=== PATIENT | male | born 1990 | race Caucasian/White ===

== ENCOUNTER 2023-03-10 06:17 | Emergency (ER) | payer MEDICARE, MEDICAID ==
[2023-03-10 07:58] LABS: Acetaminophen Less than 10.0 mcg/mL (10.0-30.0); Alcohol Less than 10 mg/dL (Less than 10); Salicylate Less than 8.0 mg/dL (15.0-30.0)
[2023-03-10 07:59] LABS: ALT (SGPT) 21 U/L (8-55); AST (SGOT) 35 U/L (5-34); Albumin 4.5 g/dL (3.5-5.0); Alkaline Phosphatase 154 U/L (40-110); Anion Gap 12 mmol/L (10-20); BUN (Urea Nitrogen) 11 mg/dL (8.9-20.6); Bilirubin, Total 0.2 mg/dL (0.2-1.2); Calc. Creatinine Clearance 0 mL/min (70-130); Calcium 9.1 mg/dL (7.8-10.44); Carbon Dioxide 26 mmol/L (22-29); Chloride 102 mmol/L (98-107); Estimated GFR 119; Globulin 2.7 g/dL (2.4-3.5); Glucose 116 mg/dL (70-105); Potassium 3.7 mmol/L (3.5-5.1); Protein, Total 7.2 g/dL (6.0-8.3); Sodium 136 mmol/L (136-145)
[2023-03-10 09:06] LABS: #Lymphocytes 0.6 thou/uL (1.20-3.40); #Monocytes 0.6 thou/uL (0.11-0.59); #Neutrophils 6.5 thou/uL (1.40-6.50); %Basophils 0.1 % (0.0-1.0); %Eosinophils 0.1 % (0.0-10.0); %Lymphocytes 7.7 % (21.0-51.0); %Monocytes 7.9 % (0.0-10.0); %Neutrophils 84.1 % (42.0-75.0); Hemoglobin 11.3 g/dL (14.0-18.0); Mean Corpuscular HGB CONC 30.7 g/dL (32.0-36.0); Mean Corpuscular Volume 81.3 fl (78.0-98.0); Mean Platelet Volume 10.3 fL (7.4-10.4); Platelet Count 180 10x3/uL (130-400); RBC Distribution Width 14.9 % (11.5-14.5); Red Blood Cell (RBC) Count 4.52 mill/uL (4.70-6.10); White Blood Cell (WBC) Count 7.7 10x3/uL (4.8-10.8)
[2023-03-10] MEDS ORDERED: Boostrix 0.5 ML (Tdap) VIAL (>/=7 yrs of age) ONE (09:07)
[2023-03-10] MEDS ORDERED: Bacitracin 1 PK ONE (09:07)
[2023-03-10 09:23] LABS: Amphetamine Not Detected (NotDetected); Barbiturates Screen Not Detected (NotDetected); Benzodiazepine Screen Detected (NotDetected); Cocaine Metabolite Screen Not Detected (NotDetected); Methadone Not Detected (NotDetected); Methamphetamine Not Detected (NotDetected); Opiate Screen Not Detected (NotDetected); Oxycodone Screen Not Detected (NotDetected); Phencyclidine (PCP) Not Detected (NotDetected); THC/Cannabinoid Screen Not Detected (NotDetected); Tricyclic Screen Not Detected (NotDetected)
[2023-03-10] MEDS ORDERED: Ketorolac Tromethamine 30 MG/ML VIAL ONE (10:12)
[2023-03-10] MEDS ORDERED: Bisacodyl 5 MG TAB PO PRN (10:15)
[2023-03-10] MEDS ORDERED: Ondansetron PF 4 MG/2 ML Vial IVP PRN (10:15)
[2023-03-10] MEDS ORDERED: Acetaminophen 325 MG TAB PO PRN (10:15)
[2023-03-10] MEDS ORDERED: Bisacodyl 10 MG SUPP PR PRN (10:15)
[2023-03-10] MEDS ORDERED: Senokot S 8.6-50 MG TAB PO PRN (10:15)
[2023-03-10] MEDS ORDERED: LORazepam 2 MG/ML SYR.(CARPUJECT) ONE ×3 (10:17→11:04)
[2023-03-10] MEDS ORDERED: Sodium Chloride 0.9% 1,000 ML IV SCH (10:45)
[2023-03-10] MEDS ORDERED: levETIRAcetam 500 MG/5 ML VIAL ONE ×2 (10:46→12:24)
[2023-03-10] MEDS ORDERED: Succinylcholine 200 MG/10 ml SYRINGE FS ONE (11:06)
[2023-03-10] MEDS ORDERED: PROPOFOL 20 ML ONE (11:06)
[2023-03-10] MEDS ORDERED: Propofol 1,000 MG/100 ML VIAL IV ONE (11:14)
[2023-03-10] MEDS ORDERED: Activated Charcoal/Sorbitol 25 GM/120 ML TUBE ONE (11:17)
[2023-03-10] MEDS ORDERED: fentaNYL 50 mcg/mL 1 mL Vial ONE (11:17)
[2023-03-10] MEDS ORDERED: Midazolam HCl 5 mg/ml Vial ONE (11:22)
[2023-03-10] MEDS ORDERED: Rocuronium Bromide 10 MG/ML (10ML VIAL) ONE (11:24)
[2023-03-10 11:49] LABS: Actual Bicarbonate (HCO3a) 24.5 mEq/L (22-28); Analyzer IN Cardio ER; CO2 Tension 39.2 mmHg (35.0-45.0); Calcium, Ionized (arterial) 1.11 mmol/L (1.12-1.30); Carboxyhemoglobin (COHb) 0.4 gm% (0.0-3.0); Hemoglobin (Hb) 11.2 g/dL (14.0-18.0); O2 Tension (PaO2), arterial 176.2 mmHg (80.0-100.0); Potassium - ABG Lab 3.57 mmol/L (3.70-5.30); pH, Arterial 7.41 (7.35-7.45)
[2023-03-10 12:02] LABS: Puncture Site RBA
[2023-03-10] MEDS ORDERED: Fentanyl CADD 100 ML IV SCH (12:30)
== END 2023-03-10 12:52 | disposition short-term general hospital (02) ==
LOC: EDBD 06:17 → SUATTDRO 06:17 → ERS 06:17
PROVIDERS: ADMIT Family Medicine; ATTEND Family Medicine
DX: S01.112A Laceration without foreign body of left eyelid and periocular area, initial encounter (principal); G40 Epilepsy and recurrent seizures; R41.82 Altered mental status, unspecified; F17.210 Nicotine dependence, cigarettes, uncomplicated; W18.30XA Fall on same level, unspecified, initial encounter
CPT/HCPCS: 12011; 31500; 36415; 36600; 51702; 70450; 70486; 71045; 72125; 80053; 80306; 80307; 82805; 84146; 84443; 85025; 90471; 90715; 93005; 94002; 96365; 96372; 96374; 96375; J1885; J1953; J2060; J2250; J2704; J3010

== ENCOUNTER 2023-03-23 20:32 | Emergency (ER) | payer MEDICAID, MEDICARE ==
[2023-03-23 21:15] LABS: Bilirubin Negative (Negative); Blood, Urine Negative (Negative); Clarity Clear (Clear); Glucose, Urine (Dipstick) Normal (Negative); Ketone, Urine Negative (Negative); Leukocyte Negative Leu/uL (Negative); Nitrite Negative (Negative); Protein, Urine (Dipstick) Negative (Neg-Trace); Specific Gravity, Urine 1.003 (1.002-1.036); Urobilinogen Normal mg/dL (Less than 2)
[2023-03-23 21:22] LABS: Amphetamine Not Detected (NotDetected); Barbiturates Screen Not Detected (NotDetected); Benzodiazepine Screen Not Detected (NotDetected); Cocaine Metabolite Screen Not Detected (NotDetected); Methadone Not Detected (NotDetected); Methamphetamine Not Detected (NotDetected); Opiate Screen Not Detected (NotDetected); Oxycodone Screen Not Detected (NotDetected); Phencyclidine (PCP) Not Detected (NotDetected); THC/Cannabinoid Screen Not Detected (NotDetected); Tricyclic Screen Not Detected (NotDetected)
[2023-03-23 21:59] LABS: Hemoglobin 11.9 g/dL (14.0-18.0); Mean Corpuscular HGB CONC 31.7 g/dL (32.0-36.0); Mean Corpuscular Hemoglobin 25.6 pg (27.0-31.0); Mean Corpuscular Volume 80.8 fl (78.0-98.0); RBC Distribution Width 15.9 % (11.5-14.5); Red Blood Cell (RBC) Count 4.64 mill/uL (4.70-6.10); White Blood Cell (WBC) Count 7.8 10x3/uL (4.8-10.8)
[2023-03-23] MEDS ORDERED: carBAMazepine 200 MG TAB PO SCH (22:00)
[2023-03-23 22:18] LABS: #Basophils 0.1 thou/uL (0.0-0.2); #Lymphocytes 1.2 thou/uL (1.20-3.40); #Monocytes 0.6 thou/uL (0.11-0.59); #Neutrophils 5.9 thou/uL (1.40-6.50); %Basophils 0.7 % (0.0-1.0); %Eosinophils 0.6 % (0.0-10.0); %Lymphocytes 15.1 % (21.0-51.0); %Monocytes 8.1 % (0.0-10.0); %Neutrophils 75.5 % (42.0-75.0); Anisocytosis SLIGHT = 6-15 cells (100X) (0-5/hpf); MDiff Complete? YES; Mean Platelet Volume 9.2 fL (7.4-10.4); Platelet Count 247 10x3/uL (130-400); Platelet Morphology Comment Appears Adequate
[2023-03-23 22:35] LABS: Carbamazepine-Tegretol Less than 1.9 ug/mL (4.0-12.0)
[2023-03-23 22:37] LABS: ALT (SGPT) 12 U/L (8-55); AST (SGOT) 20 U/L (5-34); Albumin 4.7 g/dL (3.5-5.0); Alkaline Phosphatase 158 U/L (40-110); Anion Gap 17 mmol/L (10-20); BUN (Urea Nitrogen) 12 mg/dL (8.9-20.6); Bilirubin, Total 0.2 mg/dL (0.2-1.2); Calc. Creatinine Clearance 0 mL/min (70-130); Calcium 9.5 mg/dL (7.8-10.44); Carbon Dioxide 18 mmol/L (22-29); Chloride 105 mmol/L (98-107); Estimated GFR 116; Globulin 3.2 g/dL (2.4-3.5); Glucose 128 mg/dL (70-105); Potassium 4.3 mmol/L (3.5-5.1); Protein, Total 7.9 g/dL (6.0-8.3); Sodium 136 mmol/L (136-145)
== END 2023-03-24 00:59 ==
LOC: ERS 20:32
DX: R56.9 Unspecified convulsions (principal); D64.9 Anemia, unspecified; F17.290 Nicotine dependence, other tobacco product, uncomplicated; Z79.899 Other long term (current) drug therapy
CPT/HCPCS: 36416; 80053; 80156; 80306; 81003; 84146; 85025; 99284

== ENCOUNTER 2023-04-04 15:07 | Emergency (ER) | payer MEDICARE, MEDICAID ==
[2023-04-04] MEDS ORDERED: Fosphenytoin Sodium 500 mg/10 ml Vial ONE (15:37)
[2023-04-04] MEDS ORDERED: levETIRAcetam 500 MG/5 ML VIAL ONE (15:37)
[2023-04-04] MEDS ORDERED: Diazepam 10 MG/2 ML SYRINGE ONE (15:37)
[2023-04-04] MEDS ORDERED: Fosphenytoin Sodium 1,500 MG in Sodium Chloride 0.9% 50 ML IVPB SCH (15:45)
[2023-04-04] MEDS ORDERED: Rocuronium Bromide 10 MG/ML (10ML VIAL) ONE (15:50)
[2023-04-04] MEDS ORDERED: Propofol 1,000 MG/100 ML VIAL IV ONE (15:51)
[2023-04-04 15:55] LABS: #Eosinphils 0.1 thou/uL (0.0-0.7); #Lymphocytes 1.3 thou/uL (1.20-3.40); #Monocytes 0.4 thou/uL (0.11-0.59); #Neutrophils 3.9 thou/uL (1.40-6.50); %Basophils 0.2 % (0.0-1.0); %Eosinophils 0.9 % (0.0-10.0); %Lymphocytes 22.6 % (21.0-51.0); %Monocytes 6.9 % (0.0-10.0); %Neutrophils 69.4 % (42.0-75.0); Hemoglobin 10.6 g/dL (14.0-18.0); Mean Corpuscular HGB CONC 32.6 g/dL (32.0-36.0); Mean Corpuscular Hemoglobin 26.1 pg (27.0-31.0); Mean Platelet Volume 9.9 fL (7.4-10.4); Platelet Count 211 10x3/uL (130-400); RBC Distribution Width 15.7 % (11.5-14.5); Red Blood Cell (RBC) Count 4.07 mill/uL (4.70-6.10); White Blood Cell (WBC) Count 5.6 10x3/uL (4.8-10.8)
[2023-04-04 16:19] LABS: ALT (SGPT) 11 U/L (8-55); AST (SGOT) 16 U/L (5-34); Albumin 4.6 g/dL (3.5-5.0); Alkaline Phosphatase 149 U/L (40-110); Anion Gap 13 mmol/L (10-20); BUN (Urea Nitrogen) 14 mg/dL (8.9-20.6); Bilirubin, Total Less than 0.2 mg/dL (0.2-1.2); Calc. Creatinine Clearance 0 mL/min (70-130); Calcium 9.4 mg/dL (7.8-10.44); Carbon Dioxide 26 mmol/L (22-29); Chloride 107 mmol/L (98-107); Estimated GFR 121; Globulin 2.8 g/dL (2.4-3.5); Glucose 98 mg/dL (70-105); Potassium 3.9 mmol/L (3.5-5.1); Protein, Total 7.4 g/dL (6.0-8.3); Sodium 142 mmol/L (136-145)
[2023-04-04 16:29] LABS: Bilirubin Negative (Negative); Blood, Urine Negative (Negative); Clarity Clear (Clear); Glucose, Urine (Dipstick) Normal (Negative); Ketone, Urine Negative (Negative); Leukocyte Negative Leu/uL (Negative); Nitrite Negative (Negative); Protein, Urine (Dipstick) Negative (Neg-Trace); Specific Gravity, Urine 1.007 (1.002-1.036); Urobilinogen Normal mg/dL (Less than 2); pH, Urine 7.5 (5.0-9.0)
[2023-04-04 16:55] LABS: Amphetamine Not Detected (NotDetected); Barbiturates Screen Not Detected (NotDetected); Benzodiazepine Screen Not Detected (NotDetected); Cocaine Metabolite Screen Not Detected (NotDetected); Methadone Not Detected (NotDetected); Methamphetamine Not Detected (NotDetected); Opiate Screen Not Detected (NotDetected); Oxycodone Screen Not Detected (NotDetected); Phencyclidine (PCP) Not Detected (NotDetected); THC/Cannabinoid Screen Not Detected (NotDetected); Tricyclic Screen Not Detected (NotDetected)
[2023-04-04 16:58] LABS: Carbamazepine-Tegretol 4.9 ug/mL (4.0-12.0)
== END 2023-04-04 16:20 | disposition home or self-care (01) ==
LOC: ERS 15:07
DX: R56.9 Unspecified convulsions (principal); F17.290 Nicotine dependence, other tobacco product, uncomplicated
CPT/HCPCS: 80053; 80156; 80164; 80306; 81003; 84146; 85025; 94760; 96374; 96375; 99284; J1953; J2704; J3360; Q2009

== ENCOUNTER 2023-04-15 16:34 | Emergency (ER) | payer OTHER ==
[2023-04-15] MEDS ORDERED: LORazepam 2 MG/ML SYR.(CARPUJECT) ONE (17:02)
[2023-04-15 17:23] LABS: #Monocytes 0.4 thou/uL (0.11-0.59); %Basophils 0.4 % (0.0-1.0); %Eosinophils 0.4 % (0.0-10.0); %Lymphocytes 10.4 % (21.0-51.0); %Monocytes 8.4 % (0.0-10.0); %Neutrophils 80.2 % (42.0-75.0); Hemoglobin 9.5 g/dL (14.0-18.0); Mean Corpuscular Hemoglobin 24.2 pg (27.0-31.0); Mean Corpuscular Volume 80.9 fl (78.0-98.0); Mean Platelet Volume 11.1 fL (7.4-10.4); Platelet Count 321 10x3/uL (130-400); Red Blood Cell (RBC) Count 3.92 mill/uL (4.70-6.10)
[2023-04-15 18:17] LABS: ALT (SGPT) 272 U/L (8-55); AST (SGOT) 393 U/L (5-34); Albumin 4.7 g/dL (3.5-5.0); Alkaline Phosphatase 191 U/L (40-110); Anion Gap 14 mmol/L (10-20); BUN (Urea Nitrogen) 6 mg/dL (8.9-20.6); Bilirubin, Total 0.5 mg/dL (0.2-1.2); Calc. Creatinine Clearance 0 mL/min (70-130); Calcium 9.5 mg/dL (7.8-10.44); Carbon Dioxide 25 mmol/L (22-29); Chloride 108 mmol/L (98-107); Estimated GFR 123; Glucose 90 mg/dL (70-105); Potassium 4.3 mmol/L (3.5-5.1); Protein, Total 7.7 g/dL (6.0-8.3); Sodium 143 mmol/L (136-145)
== END 2023-04-15 17:22 | disposition home or self-care (01) ==
LOC: ERS 16:34
DX: R56.9 Unspecified convulsions (principal)
CPT/HCPCS: 80053; 85025; 93005; 96374; J2060

== ENCOUNTER 2023-04-22 03:16 | Inpatient (IN) | payer MEDICARE, MEDICAID ==
[2023-04-22] MEDS ORDERED: Morphine 4 MG/ML VIAL ONE (04:09)
[2023-04-22] MEDS ORDERED: Piperacillin/Tazobactam 3.375 GM VIAL ONE (04:09)
[2023-04-22 05:30] LABS: #Monocytes 0.5 thou/uL (0.11-0.59); #Neutrophils 3.2 thou/uL (1.40-6.50); %Basophils 0.6 % (0.0-1.0); %Eosinophils 0.6 % (0.0-10.0); %Lymphocytes 19.9 % (21.0-51.0); %Monocytes 9.8 % (0.0-10.0); %Neutrophils 68.9 % (42.0-75.0); Hemoglobin 9.4 g/dL (14.0-18.0); Mean Corpuscular HGB CONC 28.6 g/dL (32.0-36.0); Mean Corpuscular Hemoglobin 23.5 pg (27.0-31.0); Mean Corpuscular Volume 82.3 fl (78.0-98.0); Mean Platelet Volume 11.4 fL (7.4-10.4); Platelet Count 277 10x3/uL (130-400); RBC Distribution Width 17.7 % (11.5-14.5); White Blood Cell (WBC) Count 4.7 10x3/uL (4.8-10.8)
[2023-04-22 05:52] LABS: ALT (SGPT) 37 U/L (8-55); AST (SGOT) 16 U/L (5-34); Acetaminophen Less than 10.0 mcg/mL (10.0-30.0); Albumin 4.5 g/dL (3.5-5.0); Alcohol Less than 10 mg/dL (Less than 10); Alkaline Phosphatase 153 U/L (40-110); Anion Gap 12 mmol/L (10-20); BUN (Urea Nitrogen) 10 mg/dL (8.9-20.6); Bilirubin, Total 0.2 mg/dL (0.2-1.2); Calc. Creatinine Clearance 0 mL/min (70-130); Calcium 9.3 mg/dL (7.8-10.44); Carbon Dioxide 27 mmol/L (22-29); Chloride 107 mmol/L (98-107); Estimated GFR 126; Globulin 2.5 g/dL (2.4-3.5); Glucose 94 mg/dL (70-105); Lipase 111 U/L (8-78); Potassium 4.1 mmol/L (3.5-5.1); Salicylate Less than 8.0 mg/dL (15.0-30.0); Sodium 142 mmol/L (136-145)
[2023-04-22 06:01] LABS: CellaVision Operator ID lab.abc; Hypochromia SLIGHT = 6-15 cells HPF (0-5); Platelet Adequacy Comment Platelets Normal
[2023-04-22] MEDS ORDERED: Acetaminophen 650 MG Suppository PR PRN (06:25)
[2023-04-22] MEDS ORDERED: Ondansetron PF 4 MG/2 ML Vial IVP PRN (06:25)
[2023-04-22 07:25] LABS: Bacteria/HPF None Seen HPF (None Seen); Bilirubin Negative (Negative); Blood, Urine Negative (Negative); Clarity Clear (Clear); Glucose, Urine (Dipstick) Normal (Negative); Ketone, Urine Negative (Negative); Leukocyte Negative Leu/uL (Negative); Nitrite Negative (Negative); Protein, Urine (Dipstick) Negative (Neg-Trace); RBC/HPF 0-3 HPF (0-3); Specific Gravity, Urine 1.025 (1.002-1.036); Squamous Epithelial 0-3 HPF (0-3); Urobilinogen 3 mg/dL (Less than 2); WBC/HPF 0-3 HPF (0-3); pH, Urine 7.5 (5.0-9.0)
[2023-04-22 08:03] LABS: Amphetamine Not Detected (NotDetected); Barbiturates Screen Not Detected (NotDetected); Benzodiazepine Screen Not Detected (NotDetected); Cocaine Metabolite Screen Not Detected (NotDetected); Methadone Not Detected (NotDetected); Methamphetamine Not Detected (NotDetected); Opiate Screen Not Detected (NotDetected); Oxycodone Screen Not Detected (NotDetected); Phencyclidine (PCP) Not Detected (NotDetected); THC/Cannabinoid Screen Not Detected (NotDetected); Tricyclic Screen Not Detected (NotDetected)
[2023-04-22] MEDS: D5 1/2 NS w/20 mEq KCL 1,000 ML IV SCH ×2 (08:15→20:00)
[2023-04-22 08:30] VITALS: BMI 23.1
[2023-04-22 08:37] LABS: SARS-CoV-2 NAA Rapid Test DETECTED (NotDetected)
[2023-04-22] MEDS: Famotidine/PF 20 mg/2ml Vial SLOW IVP SCH ×2 (09:03→21:58)
[2023-04-22] MEDS ORDERED: Multivitamins CHEW w/Iron Tablet PO SCH (09:30)
[2023-04-22] MEDS ORDERED: Cyanocobalamin 1000 MCG/ML VIAL IM SCH (09:30)
[2023-04-22 10:00] LABS: Iron 19 ug/dL (65-175); Iron Binding Capacity, Total 460 mcg/dL (261-462)
[2023-04-22] MEDS ORDERED: MULTIVIT/IRON SULF/FOLIC ACID 1 EACH TAB PO SCH (10:00)
[2023-04-22 10:25] LABS: Ferritin 41.93 ng/mL (22-322)
[2023-04-22] MEDS: Acetaminophen/Codeine 30-300mg Tablet PO SCH ×3 (11:18→23:30)
[2023-04-22] MEDS: Acetaminophen 325 MG TAB PO SCH ×2 (18:51→23:31)
[2023-04-22] MEDS: cloNIDine 0.2 MG TAB PO SCH (21:58)
[2023-04-22] MEDS: carBAMazepine 200 MG TAB PO SCH (21:58)
[2023-04-22] MEDS: Prazosin HCl 1 MG CAP PO SCH (21:59)
[2023-04-22] MEDS: Senokot S 8.6-50 MG TAB PO SCH (21:59)
[2023-04-22] MEDS: Venlafaxine HCl XR 150 MG CAP PO SCH (22:00)
[2023-04-22] MEDS: traZODone HCl 50 MG TAB PO SCH (22:00)
[2023-04-22] MEDS: hydrOXYzine 25 MG TAB PO PRN (23:36)
[2023-04-23] MEDS: Acetaminophen 325 MG TAB PO SCH ×4 (05:44→23:40)
[2023-04-23] MEDS: Acetaminophen/Codeine 30-300mg Tablet PO SCH ×4 (05:45→23:40)
[2023-04-23] MEDS: D5 1/2 NS w/20 mEq KCL 1,000 ML IV SCH (05:48)
[2023-04-23 05:56] LABS: #Eosinphils 0.1 thou/uL (0.0-0.7); #Monocytes 0.5 thou/uL (0.11-0.59); #Neutrophils 1.8 thou/uL (1.40-6.50); %Basophils 0.9 % (0.0-1.0); %Eosinophils 1.6 % (0.0-10.0); %Lymphocytes 25.7 % (21.0-51.0); %Monocytes 14.1 % (0.0-10.0); %Neutrophils 57.7 % (42.0-75.0); Hemoglobin 10.3 g/dL (14.0-18.0); Mean Corpuscular HGB CONC 28.9 g/dL (32.0-36.0); Mean Corpuscular Hemoglobin 23.6 pg (27.0-31.0); Mean Corpuscular Volume 81.7 fl (78.0-98.0); Mean Platelet Volume 11.5 fL (7.4-10.4); Platelet Count 258 10x3/uL (130-400); RBC Distribution Width 17.7 % (11.5-14.5); Red Blood Cell (RBC) Count 4.36 mill/uL (4.70-6.10); White Blood Cell (WBC) Count 3.2 10x3/uL (4.8-10.8)
[2023-04-23 06:22] LABS: Anion Gap 13 mmol/L (10-20); BUN (Urea Nitrogen) 6 mg/dL (8.9-20.6); Calc. Creatinine Clearance 173 mL/min (70-130); Calcium 9.8 mg/dL (7.8-10.44); Carbon Dioxide 26 mmol/L (22-29); Chloride 106 mmol/L (98-107); Estimated GFR 126; Glucose 88 mg/dL (70-105); Potassium 3.9 mmol/L (3.5-5.1); Sodium 141 mmol/L (136-145)
[2023-04-23 06:56] LABS: CellaVision Operator ID lab.abc; Hypochromia SLIGHT = 6-15 cells HPF (0-5); Platelet Adequacy Comment Platelets Normal
[2023-04-23] MEDS: Polyethylene Glycol 3350 17 GM Packet PO SCH (09:47)
[2023-04-23] MEDS: MULTIVIT/IRON SULF/FOLIC ACID 1 EACH TAB PO SCH (09:47)
[2023-04-23] MEDS: Senokot S 8.6-50 MG TAB PO SCH ×2 (09:47→21:00)
[2023-04-23] MEDS: carBAMazepine 200 MG TAB PO SCH ×2 (09:48→21:00)
[2023-04-23] MEDS: cloNIDine 0.2 MG TAB PO SCH ×3 (09:48→20:59)
[2023-04-23] MEDS: Famotidine/PF 20 mg/2ml Vial SLOW IVP SCH ×2 (09:48→21:00)
[2023-04-23] MEDS: Ketorolac Tromethamine 30 MG/ML VIAL IVP PRN (14:33)
[2023-04-23] MEDS: Temazepam 15 MG CAP PO SCH (20:59)
[2023-04-23] MEDS: Venlafaxine HCl XR 150 MG CAP PO SCH (20:59)
[2023-04-23] MEDS: Prazosin HCl 1 MG CAP PO SCH (20:59)
[2023-04-23] MEDS: Melatonin 3 MG TAB PO SCH (21:00)
[2023-04-23] MEDS: traZODone HCl 50 MG TAB PO SCH ×2 (21:01)
[2023-04-24] MEDS: Acetaminophen 325 MG TAB PO SCH ×4 (05:00→23:29)
[2023-04-24] MEDS: Acetaminophen/Codeine 30-300mg Tablet PO SCH ×4 (05:00→23:28)
[2023-04-24] MEDS: Famotidine/PF 20 mg/2ml Vial SLOW IVP SCH ×2 (08:43→20:22)
[2023-04-24] MEDS: Polyethylene Glycol 3350 17 GM Packet PO SCH (08:43)
[2023-04-24] MEDS: cloNIDine 0.2 MG TAB PO SCH ×3 (08:44→20:22)
[2023-04-24] MEDS: Senokot S 8.6-50 MG TAB PO SCH ×2 (08:44→20:21)
[2023-04-24] MEDS: MULTIVIT/IRON SULF/FOLIC ACID 1 EACH TAB PO SCH (08:44)
[2023-04-24] MEDS: carBAMazepine 200 MG TAB PO SCH ×2 (08:45→20:21)
[2023-04-24] MEDS: Ketorolac Tromethamine 30 MG/ML VIAL IVP PRN (10:12)
[2023-04-24] MEDS ORDERED: Bisacodyl 10 MG SUPP PR SCH (11:15)
[2023-04-24] MEDS: Prazosin HCl 1 MG CAP PO SCH (20:21)
[2023-04-24] MEDS: Venlafaxine HCl XR 150 MG CAP PO SCH (20:21)
[2023-04-24] MEDS: Melatonin 3 MG TAB PO SCH (20:21)
[2023-04-24] MEDS: Temazepam 15 MG CAP PO SCH (20:22)
[2023-04-24] MEDS: traZODone HCl 50 MG TAB PO SCH (20:22)
[2023-04-25] MEDS: Acetaminophen/Codeine 30-300mg Tablet PO SCH ×3 (05:23→18:24)
[2023-04-25] MEDS: Acetaminophen 325 MG TAB PO SCH ×4 (05:23→23:23)
[2023-04-25] MEDS: Polyethylene Glycol 3350 17 GM Packet PO SCH (09:36)
[2023-04-25] MEDS: Senokot S 8.6-50 MG TAB PO SCH ×2 (09:36→20:04)
[2023-04-25] MEDS: Famotidine/PF 20 mg/2ml Vial SLOW IVP SCH ×2 (09:37→20:06)
[2023-04-25] MEDS: cloNIDine 0.2 MG TAB PO SCH ×3 (09:37→20:06)
[2023-04-25] MEDS: carBAMazepine 200 MG TAB PO SCH ×2 (09:37→20:16)
[2023-04-25] MEDS: MULTIVIT/IRON SULF/FOLIC ACID 1 EACH TAB PO SCH (09:37)
[2023-04-25] MEDS ORDERED: Iopamidol-370 76% 500 ML MDV (1 ML CHARGE) ONE (12:30)
[2023-04-25] MEDS ORDERED: GoLYTELY 4,000 ml Bottle PO SCH (14:15)
[2023-04-25] MEDS: Ketorolac Tromethamine 30 MG/ML VIAL IVP PRN (15:28)
[2023-04-25] MEDS: Morphine 2 MG/ML VIAL SLOW IVP PRN ×3 (16:44→23:28)
[2023-04-25] MEDS: Prazosin HCl 1 MG CAP PO SCH (20:04)
[2023-04-25] MEDS: Melatonin 3 MG TAB PO SCH (20:05)
[2023-04-25] MEDS: Temazepam 15 MG CAP PO SCH (20:05)
[2023-04-25] MEDS: Venlafaxine HCl XR 150 MG CAP PO SCH (20:06)
[2023-04-25] MEDS: traZODone HCl 50 MG TAB PO SCH (21:19)
[2023-04-26] MEDS: Acetaminophen/Codeine 30-300mg Tablet PO SCH ×5 (00:39→23:43)
[2023-04-26] MEDS: Morphine 2 MG/ML VIAL SLOW IVP PRN ×6 (03:05→21:54)
[2023-04-26] MEDS: Acetaminophen 325 MG TAB PO SCH ×4 (05:59→23:43)
[2023-04-26] MEDS: Senokot S 8.6-50 MG TAB PO SCH ×2 (08:48→21:57)
[2023-04-26] MEDS: Famotidine/PF 20 mg/2ml Vial SLOW IVP SCH ×2 (08:49→21:56)
[2023-04-26] MEDS: cloNIDine 0.2 MG TAB PO SCH ×3 (08:49→21:56)
[2023-04-26] MEDS: carBAMazepine 200 MG TAB PO SCH ×2 (08:55→21:57)
[2023-04-26] MEDS: MULTIVIT/IRON SULF/FOLIC ACID 1 EACH TAB PO SCH (09:54)
[2023-04-26] MEDS: Polyethylene Glycol 3350 17 GM Packet PO SCH (09:55)
[2023-04-26] MEDS: Melatonin 3 MG TAB PO SCH (21:56)
[2023-04-26] MEDS: Prazosin HCl 1 MG CAP PO SCH (21:57)
[2023-04-26] MEDS: Temazepam 15 MG CAP PO SCH (21:57)
[2023-04-26] MEDS: traZODone HCl 50 MG TAB PO SCH (21:57)
[2023-04-26] MEDS: Venlafaxine HCl XR 150 MG CAP PO SCH (22:03)
[2023-04-27] MEDS: Morphine 2 MG/ML VIAL SLOW IVP PRN ×5 (02:54→21:13)
[2023-04-27] MEDS: Acetaminophen/Codeine 30-300mg Tablet PO SCH ×3 (06:20→18:37)
[2023-04-27] MEDS: Acetaminophen 325 MG TAB PO SCH ×3 (06:21→18:36)
[2023-04-27] MEDS: Famotidine/PF 20 mg/2ml Vial SLOW IVP SCH ×2 (08:39→21:19)
[2023-04-27] MEDS: Senokot S 8.6-50 MG TAB PO SCH ×2 (08:39→21:18)
[2023-04-27] MEDS: carBAMazepine 200 MG TAB PO SCH ×2 (08:39→21:18)
[2023-04-27] MEDS: cloNIDine 0.2 MG TAB PO SCH ×3 (08:39→21:17)
[2023-04-27] MEDS ORDERED: Benzocaine (Dental) 7 GM TUBE TOP PRN (08:44)
[2023-04-27] MEDS ORDERED: GoLYTELY 4,000 ml Bottle PO SCH (09:00)
[2023-04-27] MEDS: MULTIVIT/IRON SULF/FOLIC ACID 1 EACH TAB PO SCH (11:20)
[2023-04-27] MEDS: Polyethylene Glycol 3350 17 GM Packet PO SCH (14:23)
[2023-04-27] MEDS: Melatonin 3 MG TAB PO SCH (21:17)
[2023-04-27] MEDS: Venlafaxine HCl XR 150 MG CAP PO SCH (21:18)
[2023-04-27] MEDS: Temazepam 15 MG CAP PO SCH (21:19)
[2023-04-27] MEDS: traZODone HCl 50 MG TAB PO SCH (21:20)
[2023-04-27] MEDS: Prazosin HCl 1 MG CAP PO SCH (21:33)
[2023-04-28] MEDS: Acetaminophen 325 MG TAB PO SCH ×5 (00:19→23:58)
[2023-04-28] MEDS: Acetaminophen/Codeine 30-300mg Tablet PO SCH ×5 (00:20→23:50)
[2023-04-28] MEDS: Morphine 2 MG/ML VIAL SLOW IVP PRN ×6 (03:37→21:59)
[2023-04-28] MEDS: carBAMazepine 200 MG TAB PO SCH ×2 (07:58→22:06)
[2023-04-28] MEDS: Famotidine/PF 20 mg/2ml Vial SLOW IVP SCH ×2 (07:59→22:07)
[2023-04-28] MEDS: Senokot S 8.6-50 MG TAB PO SCH ×2 (07:59→22:06)
[2023-04-28] MEDS: MULTIVIT/IRON SULF/FOLIC ACID 1 EACH TAB PO SCH (07:59)
[2023-04-28] MEDS: cloNIDine 0.2 MG TAB PO SCH ×3 (07:59→22:06)
[2023-04-28] MEDS: Polyethylene Glycol 3350 17 GM Packet PO SCH (08:01)
[2023-04-28] MEDS: Melatonin 3 MG TAB PO SCH (22:06)
[2023-04-28] MEDS: Metamucil PACK PO SCH (22:07)
[2023-04-28] MEDS: Venlafaxine HCl XR 150 MG CAP PO SCH (22:07)
[2023-04-28] MEDS: Temazepam 15 MG CAP PO SCH (22:07)
[2023-04-28] MEDS: Prazosin HCl 1 MG CAP PO SCH (22:07)
[2023-04-28] MEDS: traZODone HCl 50 MG TAB PO SCH (22:08)
[2023-04-29] MEDS: Morphine 2 MG/ML VIAL SLOW IVP PRN ×6 (03:47→22:55)
[2023-04-29] MEDS: Acetaminophen 325 MG TAB PO SCH ×3 (05:45→18:28)
[2023-04-29] MEDS: Acetaminophen/Codeine 30-300mg Tablet PO SCH ×3 (05:46→18:26)
[2023-04-29 05:54] LABS: #Eosinphils 0.2 thou/uL (0.0-0.7); #Monocytes 0.6 thou/uL (0.11-0.59); #Neutrophils 3.1 thou/uL (1.40-6.50); %Basophils 0.8 % (0.0-1.0); %Eosinophils 3.1 % (0.0-10.0); %Monocytes 10.5 % (0.0-10.0); %Neutrophils 58.4 % (42.0-75.0); Mean Corpuscular HGB CONC 29.5 g/dL (32.0-36.0); Mean Corpuscular Volume 81.5 fl (78.0-98.0); Mean Platelet Volume 11.8 fL (7.4-10.4); Platelet Count 257 10x3/uL (130-400); RBC Distribution Width 17.9 % (11.5-14.5); Red Blood Cell (RBC) Count 4.16 mill/uL (4.70-6.10); White Blood Cell (WBC) Count 5.2 10x3/uL (4.8-10.8)
[2023-04-29 06:15] LABS: Anion Gap 16 mmol/L (10-20); BUN (Urea Nitrogen) 11 mg/dL (8.9-20.6); Calc. Creatinine Clearance 164 mL/min (70-130); Calcium 9.8 mg/dL (7.8-10.44); Carbon Dioxide 24 mmol/L (22-29); Chloride 102 mmol/L (98-107); Estimated GFR 124; Glucose 92 mg/dL (70-105); Sodium 137 mmol/L (136-145)
[2023-04-29] MEDS: Senokot S 8.6-50 MG TAB PO SCH ×2 (10:03→19:55)
[2023-04-29] MEDS: MULTIVIT/IRON SULF/FOLIC ACID 1 EACH TAB PO SCH (10:03)
[2023-04-29] MEDS: Famotidine/PF 20 mg/2ml Vial SLOW IVP SCH ×2 (10:04→19:54)
[2023-04-29] MEDS: cloNIDine 0.2 MG TAB PO SCH ×3 (10:05→19:55)
[2023-04-29] MEDS: carBAMazepine 200 MG TAB PO SCH ×2 (10:05→19:55)
[2023-04-29] MEDS: hydrOXYzine 25 MG TAB PO PRN (10:07)
[2023-04-29] MEDS: Metamucil PACK PO SCH ×2 (12:18→19:56)
[2023-04-29] MEDS: Polyethylene Glycol 3350 17 GM Packet PO SCH (12:18)
[2023-04-29] MEDS: Melatonin 3 MG TAB PO SCH (19:55)
[2023-04-29] MEDS: Venlafaxine HCl XR 150 MG CAP PO SCH (19:55)
[2023-04-29] MEDS: Prazosin HCl 1 MG CAP PO SCH (19:55)
[2023-04-29] MEDS: Temazepam 15 MG CAP PO SCH (19:55)
[2023-04-29] MEDS: traZODone HCl 50 MG TAB PO SCH (19:56)
[2023-04-30] MEDS: Acetaminophen 325 MG TAB PO SCH ×5 (00:46→23:32)
[2023-04-30] MEDS: Acetaminophen/Codeine 30-300mg Tablet PO SCH ×5 (00:47→23:33)
[2023-04-30] MEDS: Morphine 2 MG/ML VIAL SLOW IVP PRN ×4 (03:44→20:18)
[2023-04-30] MEDS: Famotidine/PF 20 mg/2ml Vial SLOW IVP SCH ×2 (08:54→20:18)
[2023-04-30] MEDS: MULTIVIT/IRON SULF/FOLIC ACID 1 EACH TAB PO SCH (08:54)
[2023-04-30] MEDS: carBAMazepine 200 MG TAB PO SCH ×2 (08:54→20:16)
[2023-04-30] MEDS: Senokot S 8.6-50 MG TAB PO SCH ×2 (08:55→20:16)
[2023-04-30] MEDS: cloNIDine 0.2 MG TAB PO SCH ×3 (08:55→20:16)
[2023-04-30] MEDS: Polyethylene Glycol 3350 17 GM Packet PO SCH (08:57)
[2023-04-30] MEDS: Metamucil PACK PO SCH ×2 (08:57→20:24)
[2023-04-30] MEDS: Temazepam 15 MG CAP PO SCH (20:16)
[2023-04-30] MEDS: Melatonin 3 MG TAB PO SCH (20:16)
[2023-04-30] MEDS: Venlafaxine HCl XR 150 MG CAP PO SCH (20:16)
[2023-04-30] MEDS: Prazosin HCl 1 MG CAP PO SCH (20:16)
[2023-04-30] MEDS: traZODone HCl 50 MG TAB PO SCH (20:24)
[2023-04-30] MEDS ORDERED: Ibuprofen 800 MG TAB PO PRN (20:40)
[2023-04-30] MEDS ORDERED: Ibuprofen 800 MG TAB PO SCH (20:45)
[2023-05-01] MEDS: Acetaminophen 325 MG TAB PO SCH ×3 (05:30→17:23)
[2023-05-01] MEDS: Acetaminophen/Codeine 30-300mg Tablet PO SCH ×3 (05:31→17:22)
[2023-05-01] MEDS: Senokot S 8.6-50 MG TAB PO SCH (08:09)
[2023-05-01] MEDS: cloNIDine 0.2 MG TAB PO SCH ×2 (08:10→15:50)
[2023-05-01] MEDS: MULTIVIT/IRON SULF/FOLIC ACID 1 EACH TAB PO SCH (08:10)
[2023-05-01] MEDS: Famotidine/PF 20 mg/2ml Vial SLOW IVP SCH (08:10)
[2023-05-01] MEDS: Metamucil PACK PO SCH (08:11)
[2023-05-01] MEDS: Morphine 2 MG/ML VIAL SLOW IVP PRN (08:11)
[2023-05-01] MEDS: carBAMazepine 200 MG TAB PO SCH (08:11)
[2023-05-01] MEDS: Polyethylene Glycol 3350 17 GM Packet PO SCH (08:11)
[2023-05-01 15:51] VITALS: BP 145/91
[2023-05-01 16:29] VITALS: TEMP 98.1
== END 2023-05-01 19:02 | disposition home or self-care (01) | DRG 393 ==
LOC: ERS 03:16 → SURG A 06:19 → OBSVTOIN 04-23 15:04
PROVIDERS: ADMIT Student in an Organized Health Care Education/Training Program; ATTEND Family Medicine
DX: T18.9XXA Foreign body of alimentary tract, part unspecified, initial encounter (principal); U07.1 COVID-19; F32.3 Major depressive disorder, single episode, severe with psychotic features; F17.210 Nicotine dependence, cigarettes, uncomplicated; G40.909 Epilepsy, unspecified, not intractable, without status epilepticus; F95.2 Tourette's disorder; R45.88 Nonsuicidal self-harm; F41.9 Anxiety disorder, unspecified; D50.9 Iron deficiency anemia, unspecified; Z88.8 Allergy status to other drugs, medicaments and biological substances; Z98.84 Bariatric surgery status; X83.8XXA Intentional self-harm by other specified means, initial encounter
CPT/HCPCS: 36415; 74018; 74022; 74177; 80048; 80053; 80306; 80307; 81001; 82607; 82728; 83540; 83550; 83690; 83735; 84425; 84443; 85025; 96365; 96375; 96376; G0378; J1885; J2270; J2272; J2543; J3480; Q9967; S0028; U0002